=== PATIENT | female | born 1975 | race Caucasian/White ===

== ENCOUNTER 2017-12-27 06:54 | Emergency (ER) | payer SELFPAY ==
[2017-12-27] MEDS ORDERED: diphenhydrAMINE 50 MG/ML VIAL ONE (07:31)
[2017-12-27] MEDS ORDERED: Metoclopramide HCl 10 MG/2 ML VIAL ONE (07:32)
[2017-12-27 07:35] LABS: #Eosinphils 0.1 thou/uL (0.0-0.7); #Lymphocytes 1.6 thou/uL (1.20-3.40); #Monocytes 0.3 thou/uL (0.11-0.59); %Basophils 0.7 % (0.0-1.0); %Eosinophils 2.4 % (0.0-10.0); %Lymphocytes 39.7 % (21.0-51.0); %Monocytes 8.3 % (0.0-10.0); %Neutrophils 48.8 % (42.0-75.0); Hemoglobin 13.1 g/dL (12.0-16.0); Mean Corpuscular Volume 91.6 fL (78.0-98.0); Mean Platelet Volume 6.7 fL (7.4-10.4); Platelet Count 252 thou/uL (130-400); RBC Distribution Width 11.1 % (11.5-14.5); Red Blood Cell (RBC) Count 4.08 mill/uL (4.20-5.40)
[2017-12-27 07:55] LABS: ALT (SGPT) 30 U/L (8-55); AST (SGOT) 24 U/L (5-34); Alkaline Phosphatase 89 U/L (40-150); Anion Gap 11 mmol/L (10-20); BUN (Urea Nitrogen) 12 mg/dL (7.0-18.7); Bilirubin, Total 0.5 mg/dL (0.2-1.2); Calc. Creatinine Clearance 0 mL/min (70-130); Calcium 9.3 mg/dL (7.8-10.44); Carbon Dioxide 25 mmol/L (22-29); Chloride 106 mmol/L (98-107); Estimated GFR-MDRD 87; Glucose 90 mg/dL (70-105); Potassium 3.9 mmol/L (3.5-5.1); Sodium 138 mmol/L (136-145)
[2017-12-27] MEDS ORDERED: Magnesium Sulfate 2 GM/100 ML BAG ONE (08:23)
[2017-12-27] MEDS ORDERED: Acetaminophen 500 MG TAB ONE (08:23)
== END 2017-12-27 10:50 | disposition home or self-care (01) ==
LOC: ERS 06:54
DX: G43.909 Migraine, unspecified, not intractable, without status migrainosus (principal); F31.9 Bipolar disorder, unspecified
CPT/HCPCS: 80053; 84702; 85025; 96365; 96367; 96375; J1200; J2765; J3475

== ENCOUNTER 2018-01-07 20:06 | Emergency (ER) | payer SELFPAY ==
[2018-01-07] MEDS ORDERED: Ketorolac Tromethamine 60 MG/2 ML VIAL ONE (20:19)
== END 2018-01-07 20:47 | disposition home or self-care (01) ==
LOC: ERS 20:06
DX: M72.2 Plantar fascial fibromatosis (principal)
CPT/HCPCS: 96372; J1885

== ENCOUNTER 2018-01-29 08:21 | Emergency (ER) | payer SELFPAY ==
[2018-01-29] MEDS ORDERED: Ibuprofen 800 MG TAB ONE (09:03)
== END 2018-01-29 08:38 | disposition home or self-care (01) ==
LOC: ERS 08:21
DX: M72.2 Plantar fascial fibromatosis (principal); G43.909 Migraine, unspecified, not intractable, without status migrainosus; F31.9 Bipolar disorder, unspecified
CPT/HCPCS: 99283